=== PATIENT | female | born 1985 | race Caucasian/White ===

== ENCOUNTER 2017-11-12 17:04 | Emergency (ER) | payer OTHER ==
[2017-11-12 17:59] VITALS: BP 120/70
--- NOTE | 2017-11-12 18:11 | UC ---
Throat Pain/Nasal Ryan HPI - HPI Summary HPI Summary: Kaur 32-year-old female with a 3 week history of sinus congestion and pain postnasal drip and runny nose. She denies any fever or chills she has been feeling fatigued. She denies any chest pain or shortness of breath. No nausea vomiting or diarrhea. - History of Current Complaint Chief Complaint: UCRespiratory Stated Complaint: CONGESTION Time Seen by Provider: 11/12/17 17:59 Hx Obtained From: Patient Hx Last Menstrual Period: MIRENA Onset/Duration: Gradual Onset, Lasting Weeks - 3 Severity: Moderate Pain Intensity: 0 Pain Scale Used: 0-10 Numeric Associated Signs & Symptoms: Positive: Hoarseness, Sinus Discomfort, Nasal Discharge - Allergies/Home Medications Allergies/Adverse Reactions: Allergies Allergy/AdvReac Type Severity Reaction Status Date / Time No Known Allergies Allergy Verified 11/12/17 17:54 PMH/Surg Hx/FS Hx/Imm Hx Previously Healthy: Yes Other History Of: Negative For: HIV, Hepatitis B, Hepatitis C, Anticoagulant Therapy - Surgical History Surgical History: Yes Surgery Procedure, Year, and Place: hernia repair. wisdom teeth - Family History Known Family History: Negative: Cardiac Disease, Hypertension, Diabetes - Social History Alcohol Use: Occasionally Substance Use Type: None Smoking Status (MU): Never Smoked Tobacco Have You Smoked in the Last Year: No Review of Systems Constitutional: Negative Skin: Negative Eyes: Negative ENT: Nasal Discharge, Sinus Congestion, Sinus Pain/Tenderness Respiratory: Cough Cardiovascular: Negative Gastrointestinal: Negative Genitourinary: Negative Motor: Negative Neurovascular: Negative Musculoskeletal: Negative Neurological: Negative Psychological: Negative Is Patient Immunocompromised?: No All Other Systems Reviewed And Are Negative: Yes Physical Exam Triage Information Reviewed: Yes Appearance: Well-Appearing, No Pain Distress, Well-Nourished Vital Signs: Initial Vital Signs Temp 98.5 F 11/12/17 17:55 Pulse 69 11/12/17 17:55 Resp 16 11/12/17 17:55 BP 120/70 11/12/17 17:55 Pulse Ox 100 11/12/17 17:55 Vital Signs Reviewed: Yes Eyes: Positive: Conjunctiva Clear ENT: Positive: Hearing grossly normal, Nasal congestion, Nasal drainage, Sinus tenderness, Uvula midline. Negative: Trismus, Muffled voice, Hoarse voice, Dental tenderness Neck: Positive: Supple, Nontender, No Lymphadenopathy Respiratory: Positive: Lungs clear, Normal breath sounds, No respiratory distress Cardiovascular: Positive: RRR, No Murmur Musculoskeletal: Positive: ROM Intact, No Edema Neurological: Positive: Alert Psychological Exam: Normal Skin Exam: Normal Throat Pain/Nasal Course/Dx - Differential Dx/Diagnosis Provider Diagnoses: acute sinusitis Discharge - Sign-Out/Discharge Documenting (check all that apply): Discharge/Admit/Transfer - Discharge Plan Condition: Stable Disposition: HOME Prescriptions: Amoxicillin PO (*) [Amoxicillin 875 MG (*)] 875 mg PO BID #20 tab Fluticasone NASAL SPRAY 50MCG* [Flonase NASAL SPRAY 50MCG*] 2 spray BOTH NARES BID #1 btl Patient Education Materials: Sinusitis (ED) Referrals: Reymundo Barger MD [Primary Care Provider] - 5 Days Additional Instructions: saline nasal spray twice daily warm facial compresses - Billing Disposition and Condition Condition: STABLE Disposition: Home
== END 2017-11-12 18:12 | disposition home or self-care (01) ==
LOC: UCCORT 17:04
DX: J01.90 Acute sinusitis, unspecified (principal)
CPT/HCPCS: 99212; G0463